=== PATIENT | male | born 1970 | race American Indian/Alaskan Native ===

== ENCOUNTER 2017-03-09 07:45 | Emergency (ER) | payer OTHER ==
[2017-03-09 08:00] VITALS: PULSE 87; RESP 18; TEMP 97.6; O2SAT 100
--- NOTE | 2017-03-09 08:16 | C.PDOC ---
History Of Present Illness 46 y/o male brought to ED by EMS after being found wandering in the streets in [place]. Pt was discharged from [facility] this morning. Pt states he was seen there for anxiety after mixing energy drink with GHB. Denies any physical complaints at this time. Time Seen by Provider: 03/09/17 08:12 Chief Complaint (Nursing): Medical Clearance History Per: Patient, EMS History/Exam Limitations: no limitations Past Medical History Reviewed: Historical Data, Nursing Documentation, Vital Signs Vital Signs: Last Vital Signs Temp 97.6 F 03/09/17 07:51 Pulse 87 03/09/17 07:51 Resp 18 03/09/17 07:51 BP 148/92 H 03/09/17 08:26 Pulse Ox 100 03/09/17 08:16 - Medical History PMH: Anxiety, Depression Family History: States: No Known Family Hx - Social History Hx Alcohol Use: No Hx Substance Use: Yes Review Of Systems Except As Marked, All Systems Reviewed And Found Negative. Constitutional: Negative for: Fever, Chills Cardiovascular: Negative for: Chest Pain, Palpitations Respiratory: Negative for: Cough, Shortness of Breath Gastrointestinal: Negative for: Nausea, Vomiting, Abdominal Pain Physical Exam - Physical Exam Appears: Non-toxic, No Acute Distress, Other (sleeping) Skin: Normal Color, Warm, Dry Head: Atraumatic, Normacephalic Eye(s): bilateral: Normal Inspection, PERRL, EOMI Oral Mucosa: Moist Neck: Normal ROM, Supple Cardiovascular: Rhythm Regular, No Murmur Respiratory: Normal Breath Sounds, No Rales, No Rhonchi, No Wheezing Extremity: Normal ROM Neurological/Psych: Oriented x3, Normal Speech ED Course And Treatment O2 Sat by Pulse Oximetry: 100 Medical Decision Making Medical Decision Making: overnight @ [facility], now found wandering streets @ night. Calm, cooperative, coherent, no acute issues, no SI/HI, ok for d/c. Disposition Doctor Will See Patient In The: Office Counseled Patient/Family Regarding: Studies Performed, Diagnosis - Disposition Referrals: Alcoholics Anonymous [Outside] [facility] [Outside] [facility] [Outside] Disposition: HOME/ ROUTINE Disposition Time: 08:16 Condition: GOOD Additional Instructions: follow-up with our outpatient psych services as needed Aviod substance abuse and seek AA as needed Forms: General Discharge Instructions, [facility] (German) - Clinical Impression Clinical Impression: Medical assessment - Scribe Statement The provider has reviewed the documentation as recorded by the Scribe Alexandra Smith All medical record entries made by the Scribe were at my direction and personally dictated by me. I have reviewed the chart and agree that the record accurately reflects my personal performance of the history, physical exam, medical decision making, and the department course for this patient. I have also personally directed, reviewed, and agree with the discharge instructions and disposition.
[2017-03-09 08:26] VITALS: BP 148/92
== END 2017-03-09 08:28 | disposition home or self-care (01) ==
LOC: C.ER 07:45
DX: Z04.8 Encounter for examination and observation for other specified reasons (principal)